=== PATIENT | female | born 1985 | race Two or more races ===

== ENCOUNTER 2020-09-30 19:20 | Emergency (ER) | payer OTHER ==
[~2020-09-30] VITALS: Ht 162.6 cm; Wt 81.8 kg
[2020-09-30] MEDS ORDERED: KETOROLAC TROMETHAMINE 30 MG/ML VIAL IM ONE (20:00)
[2020-09-30] MEDS ORDERED: ACETAMINOPHEN 500 MG TABLET PO ONE (20:00)
[2020-09-30] MEDS ORDERED: DICLOFENAC SODIUM 1% 100 GM GEL [4GM] TP ONE (20:00)
[2020-09-30] MEDS ORDERED: LIDOCAINE 5% TRANSDERMAL PATCH TD ONE (20:00)
[2020-09-30] MEDS ORDERED: DIAZEPAM 5 MG TABLET PO ONE (21:00)
[2020-09-30 21:30] VITALS: BP 121/79
== END 2020-09-30 21:57 | disposition home or self-care (01) ==
LOC: EMS 19:20
DX: M54.6 Pain in thoracic spine (principal)
CPT/HCPCS: 71045; 96372; 99284; J1885